=== PATIENT | male | born 1945 | race Caucasian/White ===

== ENCOUNTER 2024-02-08 16:49 | Emergency (ER) | payer OTHER, SELFPAY ==
--- NOTE | ~2024-02-08 | XR_ITS ---
EXAMINATION: XR chest 2V Exam Date/Time: 02/08/2024 17:30 CDT HISTORY: cough, wheeze, shob, fever x2-3 days Comparison: 02/28/2013, report only. RESULT: Lines, tubes, and devices: Abandoned epicardial wires and anterior surgical clips. Lungs and pleura: Mild diffuse reticulonodular opacities with cuffing. Cardiomediastinal silhouette: Stable. Other: No acute osseous or upper abdominal finding. IMPRESSION: Pulmonary opacities may represent respiratory bronchiolitis in the appropriate clinical context. Reviewed, dictated and finalized at location [facility].
[2024-02-08 17:08] VITALS: BP 164/61; PULSE 66; RESP 22; TEMP 36.4; O2SAT 97
--- NOTE | 2024-02-08 17:26 | ED.URI ---
HPI - URI/Sore Throat General Chief Complaint: Upper Respiratory Infection Stated Complaint: cough,chest sore Time Seen by Provider: 02/08/24 17:12 Source: patient and RN notes reviewed Mode of arrival: ambulatory Limitations: no limitations History of Present Illness HPI Narrative: Patient presents today complaining of 3 day history of rhinorrhea and cough. Cough is productive and is worse when he is lying flat. Started running a fever yesterday up to 100.9. Reports some mild shortness of breath, but he is attributing this to his almost constant coughing. He has tried Mucinex, Zyrtec, and Tylenol with some relief. Denies history of asthma or COPD. He is a former smoker. Reports has similar symptoms. Related Data Home Medications Medication Instructions Recorded Confirmed amlodipine 10 mg tablet 10 mg PO DAILY 02/08/24 02/08/24 atorvastatin 40 mg tablet 40 mg PO DAILY 02/08/24 02/08/24 metoprolol tartrate 25 mg tablet 25 mg PO DAILY 02/08/24 02/08/24 rivaroxaban 15 mg tablet 15 mg PO DAILY 02/08/24 02/08/24 Allergies Allergy/AdvReac Type Severity Reaction Status Date / Time No Known Allergies Allergy Mild Verified 02/08/24 16:52 Review of Systems Review of Systems: CONSTITUTIONAL: Denies body aches, chills, or sweats.+ fever EYES: Denies visual changes, redness, or discharge. ENT: Denies congestion, sore throat, or otalgia.+ rhinorrhea CARDIOVASCULAR: Denies chest pain, palpitations, or edema. RESPIRATORY: + cough, shortness of breath. GASTROINTESTINAL: Denies abdominal pain, nausea, vomiting, or diarrhea. GENITOURINARY: Denies dysuria or hematuria. SKIN: Denies rash, itching, or wounds. MUSCULOSKELETAL: Denies back pain, joint pain, or myalgia. NEUROLOGIC: Denies headache, numbness, tingling, or weakness. PSYCH: Denies depression or anxiety. [facility] Past Medical History Medical History (Updated 02/08/24 @ 18:11 by Ileana Conrad, DAVINA, BC) High cholesterol Hypertension Testicular cancer Surgical History Surgical History (Updated 02/08/24 @ 17:30 by Ileana Conrad, DAVINA, ) S/P TURP Social History Social History (Updated 02/08/24 @ 17:28 by Ileana Conrad, [facility], ) Smoking status: Former smoker Comments At time of signature, I have reviewed and agree with nursing past medical, surgical, social and family history unless otherwise noted. Please see nursing chart for further information. There is no relevant family history pertinent to the presenting complaint Exam Narrative: GENERAL: Mildly ill-appearing, well-nourished, and in no acute distress. HEAD: Normocephalic, atraumatic. EYES: EOMI. No redness or drainage. Conjunctivae normal. ENT: Mucous membranes pink and moist. Nares congested with rhinorrhea. TMs normal bilaterally. Throat normal. Uvula midline. NECK: Normal AROM. Supple. No lymphadenopathy. CHEST: Inspiratory and expiratory wheezing throughout. Almost constant cough HEART: Regular rate and rhythm. No murmur appreciated. EXTREMITIES: Normal range of motion. No edema. SKIN: Warm, dry, no rash. Capillary refill normal. Normal skin turgor. NEURO: No focal deficits. Alert and oriented x3. Gait steady. PSYCH: Normal affect. No signs of depression or anxiety. Course Course Level of Care: Express Care Visit Vital Signs Vital signs: Vital Signs Temperature 97.6 F 02/08/24 17:08 Pulse Rate 66 02/08/24 17:08 Respiratory Rate 22 H 02/08/24 17:08 Blood Pressure 164/61 H 02/08/24 17:08 Pulse Oximetry 97 02/08/24 17:08 Oxygen Delivery Room Air 02/08/24 17:08 Temperature 97.6 F 02/08/24 17:08 Pulse Rate 66 02/08/24 17:38 Respiratory Rate 22 H 02/08/24 17:38 Blood Pressure 164/61 H 02/08/24 17:08 Pulse Oximetry 97 02/08/24 17:38 Oxygen Delivery Room Air 02/08/24 17:38 Reviewed MDM - URI/Sore Throat MDM Narrative Medical decision making narrative: COVID and influenza negative. X-ray shows bronchioli
[2024-02-08] MEDS: IPRATROPIUM BR 0.02% INH SOLN 0.5 MG/2.5 ML VIAL INHALATION (17:37)
[2024-02-08] MEDS: ALBUTEROL SULFATE NEB 2.5 MG/3 ML INH INHALATION (17:37)
[2024-02-08 17:38] VITALS: PULSE 66; RESP 22; O2SAT 97
== END 2024-02-08 18:20 | disposition home or self-care (01) ==
PROVIDERS: Emergency Provider Nurse Practitioner; PCP Internal Medicine
DX: J06.9 Acute upper respiratory infection, unspecified (principal); J40 Bronchitis, not specified as acute or chronic; Z20.822 Contact with and (suspected) exposure to COVID-19
CPT/HCPCS: 71046; 87426; 87804; 94640; 99213; G0463

== ENCOUNTER 2024-02-15 11:17 | Emergency (ER) | payer OTHER, SELFPAY ==
--- NOTE | ~2024-02-15 | XR_ITS ---
Clinical Indication: Wheezing, cough PA and lateral views of the chest: Comparison: 02/08/2024 Findings: The lungs are clear, without evidence of focal consolidation or pleural effusion. Cardiome diastinal silhouette is within normal limits. Bones and soft tissues are unremarkable. Impression: Normal chest. Reviewed, dictated and finalized at [facility]. Impression: Normal chest.
[2024-02-15 11:23] VITALS: BP 128/83; PULSE 73; RESP 24; TEMP 36.3; O2SAT 98
[2024-02-15] MEDS: IPRATROPIUM BR 0.02% INH SOLN 0.5 MG/2.5 ML VIAL INHALATION (11:55)
[2024-02-15] MEDS: ALBUTEROL SULFATE NEB 2.5 MG/3 ML INH INHALATION (11:55)
--- NOTE | 2024-02-15 12:04 | ED.SOB ---
HPI - SOB/Dyspnea General Chief Complaint: Upper Respiratory Infection Stated Complaint: SOB,cough Time Seen by Provider: 02/15/24 11:30 Source: patient Mode of arrival: ambulatory Limitations: no limitations History of Present Illness HPI Narrative: Davian is a 78-year-old male patient presenting to the clinic today with complaints coughing and wheezing for the past 10 days. He reports he is bringing up some clear phlegm. He denies any fevers. Was seen last week and diagnosed with bronchitis and given albuterol inhaler and steroids. He reports he was feeling better but cannot get rid of the cough. He denies any fever or chills. Former smoker. No history of COPD. Related Data Home Medications Medication Instructions Recorded Confirmed amlodipine 10 mg tablet 10 mg PO DAILY 02/08/24 02/15/24 atorvastatin 40 mg tablet 40 mg PO DAILY 02/08/24 02/15/24 metoprolol tartrate 25 mg tablet 25 mg PO DAILY 02/08/24 02/15/24 rivaroxaban 15 mg tablet 15 mg PO DAILY 02/08/24 02/15/24 Allergies Allergy/AdvReac Type Severity Reaction Status Date / Time No Known Allergies Allergy Mild Verified 02/15/24 11:35 Review of Systems Review of Systems: Pertinent positives per HPI. Patient denies any fever, chills, rash, headache, visual changes, dizziness, chest pain, palpitations, nausea, vomiting, diarrhea, constipation, abdominal pain, or any urinary issues. [facility] Past Medical History Medical History (Updated 02/15/24 @ 12:06 by Manfred Lepe APRN) High cholesterol Hypertension Testicular cancer Surgical History Surgical History S/P TURP Social History Social History Smoking status: Former smoker Comments At the time of my signature, I reviewed and agree with the nursing past medical, surgical, social, and family history. There is no relevant family history pertinent to the patient complaint. Exam Narrative: General: Well-developed, well nourished, in no apparent distress Head: Normocephalic, atraumatic Eyes: Pupils equally round and reactive to light bilaterally, EOM intact, sclera and conjunctive clear, no discharge, lids normal Ears: TMs intact and clear, ear canals clear, no drainage, grossly hearing normal. Nose: Nares patent, no nasal discharge, no inflammation, no sinus tenderness. Mouth: Oral pharynx without lesions or masses, good dentition, MMM. Neck: Supple, trachea midline, no enlargement of anterior or posterior cervical nodes, no thyroid masses or goiter palpable. Cardio: Regular rate and rhythm, s1 and s2 normal, no murmur appreciated. Resp: Inspiratory and expiratory wheezing throughout lung mir, no rhonchi, rales, or rubs, productive cough with clear phlegm Course Course Emergency Course: Portions of this record may have been created with voice recognition software. Level of Care: Express Care Visit Vital Signs Vital signs: Vital Signs Temperature 36.3 C L 02/15/24 11:23 Pulse Rate 73 02/15/24 11:23 Respiratory Rate 24 H 02/15/24 11:23 Blood Pressure 128/83 02/15/24 11:23 Pulse Oximetry 98 02/15/24 11:23 Temperature 36.3 C L 02/15/24 11:23 Pulse Rate 73 02/15/24 11:23 Respiratory Rate 24 H 02/15/24 11:23 Blood Pressure 128/83 02/15/24 11:23 Pulse Oximetry 98 02/15/24 11:23 Vital signs reviewed MDM - SOB/Dyspnea MDM Narrative Medical decision making narrative: At the time of visit patient is resting comfortably on the exam table. Patient appears to be nontoxic. Diagnostics: X-rays negative for any sign of pneumonia. Medications given: DuoNeb hand-held neb treatment Plan: Patient reports his coughing/shortness of breath has improved after DuoNeb treatment. Chest x-rays negative for any sign pneumonia. Prescription for 10 day taper dose of prednisone and Tessalon Perles was sent to the pharmacy. Patient
== END 2024-02-15 12:26 | disposition home or self-care (01) ==
PROVIDERS: Emergency Provider Nurse Practitioner Family; PCP Internal Medicine
DX: J40 Bronchitis, not specified as acute or chronic (principal); Z87.891 Personal history of nicotine dependence; E78.00 Pure hypercholesterolemia, unspecified; I10 Essential (primary) hypertension; Z85.47 Personal history of malignant neoplasm of testis
CPT/HCPCS: 71046; 94640; 99213; G0463